=== PATIENT | female | born 1985 | race Two or more races ===

== ENCOUNTER 2017-01-27 21:59 | Emergency (ER) | payer OTHER ==
[~2017-01-27] VITALS: Ht 167.6 cm; Wt 56.7 kg
--- NOTE | 2017-01-27 23:48 | NUR ---
dairy and food laboratory assistant at bedside for blood draw.
[2017-01-28 00:06] LABS: HEMATOCRIT 30 % (33-45); HEMOGLOBIN 9.5 g/dL (11.5-14.8); MEAN CORPUSCULAR HEMOGLOBIN 25 PG (26.0-33.0); MEAN CORPUSCULAR HGB CONC 32 g/dl (31.0-36.0); MEAN CORPUSCULAR VOLUME 78 fL (82-100); PLATELET COUNT (AUTO) 194 /CMM (150-450); RDW COEFFICIENT OF VARIATION 20.4 (11.5-15.0); RED BLOOD CELL COUNT(AUTO) 3.83 MIL/uL (4.0-5.2); WHITE BLOOD COUNT (AUTO) 3.3 K/uL (4.3-11.0)
--- NOTE | 2017-01-28 00:07 | NUR ---
US tech at bedside.
--- NOTE | 2017-01-28 00:40 | NUR ---
pt instructed to give urine as soon as able.
--- NOTE | 2017-01-28 00:50 | NUR ---
Urine obtained & sent to lab.
[2017-01-28 01:02] LABS: APPEARANCE,URINE CLEAR (CLEAR); BILIRUBIN,URINE NEGATIVE (NEGATIVE); BLOOD, URINE 3+ Ery/uL (NEGATIVE); COLOR,URINE YELLOW (YELLOW); KETONES,URINE NEGATIVE (NEGATIVE); LEUKOCYTE ESTERASE ,URINE NEGATIVE (NEGATIVE); NITRITE, URINE NEGATIVE (NEGATIVE); PROTEIN,URINE 2+ mg/dl (NEGATIVE); UGLUCOSE NEGATIVE (NEGATIVE); UROBILINOGEN,URINE 0.2 EU/dL (0.2)
[2017-01-28 01:25] LABS: BACTERIA,URINE None seen /HPF (None Seen); HYALINE CASTS, URINE Rare /LPF (None Seen); RBC,URINE 0-2 /HPF (0-2); SQUAMOUS EPITHELIAL CELL,UR Few /HPF (None Seen); WBC,URINE 0-2 /HPF (0-3)
--- NOTE | 2017-01-28 02:17 | NUR ---
Dr. Sands at bedside for update on pt status w/ discharge instructions. Patient discharged to home in stable condition. Written and verbal after care instructions given. Patient verbalizes understanding of instruction.
[2017-01-28 02:22] VITALS: BP 138/86
== END 2017-01-28 02:22 | disposition home or self-care (01) ==
LOC: ER 22:03
DX: N92.0 Excessive and frequent menstruation with regular cycle (principal); D50.9 Iron deficiency anemia, unspecified; J45.909 Unspecified asthma, uncomplicated; Z98.890 Other specified postprocedural states; Z97.5 Presence of (intrauterine) contraceptive device
CPT/HCPCS: 36415 ×2; 76856; 81001; 84703; 85025; 86850; 99285; A4606; Z7610; 81000-TC

== ENCOUNTER 2017-02-09 20:15 | Emergency (ER) | payer OTHER ==
[~2017-02-09] VITALS: Ht 170.2 cm; Wt 65.8 kg
[2017-02-09 20:20] VITALS: BP 140/95
--- NOTE | 2017-02-09 20:23 | NUR ---
STATES "I MAY LEAVE BUT WILL LET YOU KNOW"
--- NOTE | 2017-02-09 20:31 | NUR ---
CALLED FOR ROOM ASSIGNMENT; INFORMED PT LEFT
== END 2017-02-09 20:35 | disposition left against medical advice (07) ==
LOC: ER 20:16
DX: Z53.21 Procedure and treatment not carried out due to patient leaving prior to being seen by health care provider (principal)
CPT/HCPCS: A4606; Z7610

== ENCOUNTER 2017-03-02 13:40 | Emergency (ER) | payer OTHER ==
[~2017-03-02] VITALS: Ht 170.2 cm; Wt 63.5 kg
[2017-03-02 13:45] VITALS: BP 121/80
[2017-03-02] MEDS ORDERED: CHLORDIAZEPOXIDE HCL 25 MG CAPSULE PO ONE (14:30)
[2017-03-02] MEDS ORDERED: ONDANSETRON 4 MG TAB.RAPDIS SL ONE (14:30)
[2017-03-02 14:38] LABS: LYMPHOCYTES # (AUTO) 0.6 /CMM (0.8-4.8); MONOCYTES # (AUTO) 0.3 /CMM (0.1-1.30); RDW COEFFICIENT OF VARIATION 23.2 (11.5-15.0); RED BLOOD CELL COUNT(AUTO) 3.64 MIL/uL (4.0-5.2)
[2017-03-02 14:46] LABS: BASOPHILS % (AUTO) 1.3 % (0.0-2.0); EOSINOPHILS % (AUTO) 1.7 % (0.0-6.0); HEMATOCRIT 28 % (33-45); HEMOGLOBIN 8.4 g/dL (11.5-14.8); LYMPHOCYTES % (AUTO) 22.3 % (20.0-44.0); MEAN CORPUSCULAR HEMOGLOBIN 23 PG (26.0-33.0); MEAN CORPUSCULAR HGB CONC 31 g/dl (31.0-36.0); MEAN CORPUSCULAR VOLUME 76 fL (82-100); MONOCYTES % (AUTO) 11.7 % (2.0-12.0); NEUTROPHILS # (AUTO) 1.7 /CMM (1.8-8.9); PLATELET COUNT (AUTO) 183 /CMM (150-450); WHITE BLOOD COUNT (AUTO) 2.6 K/uL (4.3-11.0)
[2017-03-02 14:49] LABS: ALBUMIN 3.8 g/dL (3.4-5.0); BILIRUBIN,DIRECT 0.8 mg/dL (0.0-0.2); BILIRUBIN,TOTAL 1.2 mg/dL (0.2-1.0); CALCIUM, SERUM 8.5 mg/dL (8.5-10.1); CREATININE 0.8 mg/dL (0.6-1.3); TOTAL PROTEIN, SERUM 7.9 g/dL (6.4-8.2)
[2017-03-02 14:51] LABS: POTASSIUM 2.3 mmol/L (3.5-5.1)
[2017-03-02] MEDS ORDERED: POTASSIUM CHLORIDE 20 MEQ TAB.PRT.SR PO ONE ×2 (15:30→15:33)
[2017-03-02] MEDS ORDERED: ONDANSETRON 4 MG TAB.RAPDIS ONE (15:32)
[2017-03-02] MEDS ORDERED: CHLORDIAZEPOXIDE HCL 25 MG CAPSULE ONE (15:32)
== END 2017-03-02 16:12 | disposition home or self-care (01) ==
LOC: ER 13:42
DX: F10.231 Alcohol dependence with withdrawal delirium (principal); D64.9 Anemia, unspecified; E87.6 Hypokalemia; J45.909 Unspecified asthma, uncomplicated; K85.90 Acute pancreatitis without necrosis or infection, unspecified
CPT/HCPCS: 36415; 80048-TC; 80076-TC; 83690-TC; 84703-TC; 85025-TC; A4606; Q0162; Z7610

== ENCOUNTER 2017-04-23 01:40 | Inpatient (IN) | payer OTHER ==
[~2017-04-23] VITALS: Ht 172.7 cm; Wt 62.1 kg
--- NOTE | 2017-04-23 01:40 | NUR ---
To bed 5 a 31 yo female bbra 89; full arrest, witnessed by father, ongoing one-hand CPR and BVM upon arrival to er by ems. Patient is unresponsive, no breathing, no pulse, pupils fixed and dilated, skin warm to the touch. Code jayleen team at bedside under Dr Moreira. See code blue sheet.
--- NOTE | 2017-04-23 01:44 | NUR ---
Patient was intubated at this time ett 7, 21 at the lip, color change noted on the capnograpy. [facility] with settings as follows, rate 22, tv 500, fio2 100%, no peep.
--- NOTE | 2017-04-23 01:46 | NUR ---
Patient in ROSC, HR is 118, sinus tachy on the monitor, Respiratory rate 20, 90% O2 Saturation. Ongoing close monitoring.
--- NOTE | 2017-04-23 01:55 | NUR ---
levin catheter inserted aseptically per Dr Moreira's orders, no urine output noted. Bladder scanner used, only 48cc urine noted. Ongoing IV fluid resuscitation. Will continue to monitor.
--- NOTE | 2017-04-23 02:00 | NUR ---
Patient went to PEA. Compression started, x1 epi given per Dr Moreira's order. Patient went back to sinus tachy with pulse at 0204. Maintained patent airway. Close monitoring ongoing.
[2017-04-23 02:02] VITALS: BP 66/35
--- NOTE | 2017-04-23 02:15 | NUR ---
inserted ngt to the left nare, tip at 74cm of tube. gurgling sounds heard on epigastric area upon instillation of air. taped securely. awaiting for xr to confirm placement.
--- NOTE | 2017-04-23 02:57 | NUR ---
Dr Moreira at [facility] to insert PICC Line. Addendum: 04/23/17 at 0406 by ROBIN insertion of IV central line.
--- NOTE | 2017-04-23 03:02 | NUR ---
PT CAME INTO ER. INTUBATION WAS DONE WITH ETT SIZE 7.O; 21 AT THE LIP. VENT SETTINGS AC 22, 500, 100%, PEEP 5. BILATERAL BREATH SOUNDS. ETT WELL SECURED & CLOTH DYE RANGE OPERATOR DONE. VENT PLUGGED INTO RED OUTLET. ALARMS TESTED AND WELL FUNCTIONING. AMBU BAG PLACED AT BEDSIDE. WILL CONT TO MONITOR PATIENT.
--- NOTE | 2017-04-23 03:03 | NUR ---
DOCTOR REQUESTED THAT PEEP BE TURNED OFF DUE TO LOW BP.
--- NOTE | 2017-04-23 04:00 | NUR ---
Whitney woodard in ED - 04/23/17 at 0406 by ROBIN Unsuccessful attempt of PICC line insertion, received verbal orders from Dr Moreira, noted and will carry out.
[2017-04-23 04:12] LABS: EOSINOPHILS % (AUTO) 0.6 % (0.0-6.0); HEMATOCRIT 24 % (33-45); LYMPHOCYTES % (AUTO) 44.7 % (20.0-44.0); MEAN CORPUSCULAR HEMOGLOBIN 25 PG (26.0-33.0); MEAN CORPUSCULAR HGB CONC 28 g/dl (31.0-36.0); MEAN CORPUSCULAR VOLUME 90 fL (82-100); MONOCYTES # (AUTO) 0.4 /CMM (0.1-1.30); MONOCYTES % (AUTO) 16.6 % (2.0-12.0); NEUTROPHILS # (AUTO) 0.8 /CMM (1.8-8.9); NEUTROPHILS % (AUTO) 38.1 % (43.0-81.0); PLATELET COUNT (AUTO) 75 /CMM (150-450); RDW COEFFICIENT OF VARIATION 21.7 (11.5-15.0); WHITE BLOOD COUNT (AUTO) 2.2 K/uL (4.3-11.0)
[2017-04-23 04:13] LABS: HEMOGLOBIN 6.7 g/dL (11.5-14.8)
--- NOTE | 2017-04-23 04:24 | NUR ---
Father at bedside talking to Dr Moreira.
[2017-04-23 04:30] LABS: TROPONIN I < 0.017 ng/mL (0.00-0.056)
[2017-04-23 04:33] LABS: ACETAMINOPHEN 1 ug/ml (10-30); ALANINE AMINOTRANSFERASE 472 U/L (12-78); ALBUMIN 2.3 g/dL (3.4-5.0); ALCOHOL, BLOOD 292 mg/dL (0-0); ALKALINE PHOSPHATASE 203 U/L (46-116); BILIRUBIN,TOTAL 2.4 mg/dL (0.2-1.0); CALCIUM, SERUM 7.5 mg/dL (8.5-10.1); CHLORIDE 98 mmol/L (98-107); CREATININE 2.3 mg/dL (0.6-1.3); GLUCOSE 79 mg/dL (74-106); SODIUM SERUM 145 mmol/L (136-145); TOTAL PROTEIN, SERUM 5.4 g/dL (6.4-8.2); UREA NITROGEN, BLOOD 20 mg/dL (7-18)
[2017-04-23 04:45] LABS: SALICYLATE < 0.2 mg/dL (2.8-20.0)
[2017-04-23 04:47] LABS: CARBON DIOXIDE 7 mmol/L (21-32); POTASSIUM 6.4 mmol/L (3.5-5.1)
[2017-04-23 04:48] VITALS: BP 65/34
--- NOTE | 2017-04-23 05:05 | NUR ---
first prbc transfused. no adverse reaction noted. ongoing monitoring.
--- NOTE | 2017-04-23 05:05 | NUR ---
second prbc transfused, no adr noted. ongoing monitoring.
[2017-04-23 05:11] LABS: ASPARTATE AMINOTRANSFERASE 2962 U/L (15-37)
[2017-04-23 05:56] LABS: BAND % (MANUAL) 14 % (0.0-5.0); LYMPHOCYTES % (MANUAL) 38 % (16-48); METAMYELOCYTES % 1 % (0-0); MONOCYTES % (MANUAL) 2 % (0-11.0); MYELOCYTES % 1 % (0-0); NEUTROPHILS % (MANUAL) 44 (42-76)
--- NOTE | 2017-04-23 05:58 | NUR ---
Patient to cat scan of head.
--- NOTE | 2017-04-23 06:05 | NUR ---
3rd prbc given, no adr noted. ongoing monitoring. no urine collected, no urine from levin, bladder scanner showed about 59cc of urine.
--- NOTE | 2017-04-23 06:14 | NUR ---
Report given to Aretha ZACARIAS for ICU admission and lee.
--- NOTE | 2017-04-23 06:25 | NUR ---
Transferred patient to ICU floor via als protocol. Endorsed to DEANN Carias and Charge Nurse Krystle at bedside.
[2017-04-23 06:28] VITALS: BP 84/66
[2017-04-23 06:30] VITALS: BP 110/77
--- NOTE | 2017-04-23 06:45 | NUR ---
[facility] DELIVERY - REC'D PT. AT 06:30, RT.PUPIL FIXED/4/UNEQUAL TO LEFT PUPIL=7/FIXED. NO CORNEAL REFLEXES, NO GAG OR COUGH REFLEX. PT. IS INTUBATED W/7.0 ETT, 21 CM AT LIP W/SETTINGS AT AC-22,100% & NX=233. LEFT NARE NGT/CLAMPED. WHEN PT. WAS REC'D, SHE WAS BLEEDING FROM NOSE,MOUTH & RECTUM. IO TO RT.LAWSON, 4 PIV'S:ALL PORTS PATENT TO FLUSH. PT. HAS DOPAMINE GTT. AT 20 MCG/KG/MIN. LEVOPHED GTT. AT 14 MCG/MIN., PROTONIX GTT. AT 52CC/HR & SANDOSTATIN GTT. AT 50 MCG/HR. ALL EXT.X 4 ARE VERY COLD TO TOUCH. TIM HUGGER PLACED UPON PT. BUE PULSES ARE PALPABLE, BLE PULSES ARE VERY HARD TO PALPATE. DUPONT CATH TO GRAVITY W/NO UOP AT ALL. SBP'S ARE LABILE. HR/SR/70'S. VERBAL REPORT ENDORSED TO DENIA Short PT'S FATHER PHONED FOR CONSENT FOR PICC LINE. FATHER AGREED. NOTED. CONT.POC.
[2017-04-23 06:46] VITALS: BP 90/41
[2017-04-23 07:02] VITALS: BP 63/27
--- NOTE | 2017-04-23 09:47 | NUR ---
AUGER OPERATOR NOTE 0720: Received patient with ETT to vent. 4PIVs and 1 R jordan IO. On Levophed, titrated as ordered. SBP 60's at this time. 0725: about to place picc by PICC nurse at bedside but noted PEA. Tino clemens called, patient for PEA. See Code blue sheet. 0737: ROSC but noted with arrhytmia. 0745: Tino clemens called for PEA. 0811: Pronounced , no pulse, Asystole. No heart beat during auscultation. Called Facility Specialist [phone], spoke with Agustin, given [employer] rec fax number and said may clean body and bring to more. Called [facility] and spoke with Maria Del Rosario case # [id number], said somebody will call again. Called [facility] and made Dr. Krishnan aware re: patient . Addendum: 04/23/17 at 1121 by DENIA MOHAMUD RN Per fleshing machine operator, they will sign out and may clean body and bring to morgue and may release body to mortuary of choice, only needed some medical records. Given [employer] rec Fax number.
--- NOTE | 2017-04-23 10:00 | NUR ---
Family at bedside, father is kept updated during the code and when patient , all questions were answered. No mortuary yet, agreed to place body to [facility] and will call for mortuary to seed [place] picker body from there. Gave father info of the hospital for callback. Addendum: 04/23/17 at 1232 by DENIA MOHAMUD RN No patient's belongings, father signed belonging list.
== END 2017-04-23 08:11 | disposition expired | DRG 816 ==
LOC: ER 01:43 → ICU 06:21
PROVIDERS: ADMIT Internal Medicine; ATTEND Internal Medicine
PROC: 5A12012 Performance of Cardiac Output, Single, Manual (ICD-10-PCS; principal; 2017-04-23)
PROC: 0BH17EZ Insertion of Endotracheal Airway into Trachea, Via Natural or Artificial Opening (ICD-10-PCS; principal; 2017-04-23)
PROC: 5A1935Z Respiratory Ventilation, Less than 24 Consecutive Hours (ICD-10-PCS; principal; 2017-04-23)
PROC: 30233N1 Transfusion of Nonautologous Red Blood Cells into Peripheral Vein, Percutaneous Approach (ICD-10-PCS; principal; 2017-04-23)
DX: T51.0X1A Toxic effect of ethanol, accidental (unintentional), initial encounter (principal); I46.9 Cardiac arrest, cause unspecified; J96.01 Acute respiratory failure with hypoxia; G92 Toxic encephalopathy; K29.21 Alcoholic gastritis with bleeding; Z98.890 Other specified postprocedural states; Y92.009 Unspecified place in unspecified non-institutional (private) residence as the place of occurrence of the external cause; K70.10 Alcoholic hepatitis without ascites; E86.0 Dehydration; D68.9 Coagulation defect, unspecified
CPT/HCPCS: 36415; 70450-TC; 71010-TC; 80048-TC; 80076-TC; 82962-TC; 83605-TC; 84484-TC; 85025-TC; 86850-TC; 86921-TC; 87040-TC; 87081-TC; 92950-TC; A4216; A4606; C1751; C9113; G0480; J0171; J0696; J1265; J1815; J2354; J2765; J3490; J7030; J7040; J7050; J7060; P9016-BL; Z7610